=== PATIENT | male | born 1960 | race Caucasian/White ===

== ENCOUNTER 2018-04-07 22:35 | Inpatient (IN) | payer OTHER ==
[2018-04-07] MEDS ORDERED: SODIUM CHLORIDE 0.9% 1,000 ML IV ONE (22:56)
[2018-04-07] MEDS ORDERED: KETOROLAC 30 MG/ML 1 ML VIAL IVP STA (22:56)
[2018-04-07 23:09] LABS: Basophils % (A) 0 %; Eosinophils # (A) 0.2 k/uL (0-0.7); Eosinophils % (A) 1 %; HCT 42.7 % (39.0-53.0); HGB 14.5 gm/dL (13.0-17.5); Lymphocytes # (A) 1.4 k/uL (1.0-4.8); Lymphocytes % (A) 9 %; MCH 27.4 pg (25.0-35.0); MCHC 33.9 g/dL (31.0-37.0); MCV 80.7 fL (80.0-100.0); Mean Platelet Volume 6.3; Monocytes # (A) 0.6 k/uL (0-1.0); Monocytes % (A) 4 %; Neutrophils # (A) 12.5 k/uL (1.3-7.7); Neutrophils % (A) 84 %; Platelet Count 254 k/uL (150-450); RBC 5.29 m/uL (4.30-5.90); RDW 14.2 % (11.5-15.5); WBC 14.8 k/uL (3.8-10.6)
[2018-04-07 23:17] LABS: ALT 42 U/L (21-72); AST 30 U/L (17-59); Albumin 4.4 g/dL (3.5-5.0); Alkaline Phosphatase 52 U/L (38-126); Anion Gap 15 mmol/L; Blood Urea Nitrogen 22 mg/dL (9-20); Calcium 9.7 mg/dL (8.4-10.2); Carbon Dioxide 25 mmol/L (22-30); Chloride 99 mmol/L (98-107); Glucose 128 mg/dL (74-99); Potassium 3.7 mmol/L (3.5-5.1); Sodium 139 mmol/L (137-145); Total Bilirubin 0.6 mg/dL (0.2-1.3); Total Protein 7.2 g/dL (6.3-8.2)
[2018-04-07 23:46] LABS: Appearance,Urine Clear (Clear); Bilirubin,Urine Negative (Negative); Blood,Urine Negative (Negative); Color,Urine Yellow; Glucose,Urine (UA) Negative (Negative); Ketones,Urine Negative (Negative); Leukocyte Esterase,Urine Trace (Negative); Mucus,Urine Few /hpf; Nitrite,Urine Negative (Negative); PH, Urine 5.5 (5.0-8.0); Protein,Urine Trace (Negative); RBC,Urine 1 /hpf (0-5); Urobilinogen,Urine <2.0 mg/dL (<2.0); WBC,Urine 1 /hpf (0-5)
[2018-04-08] MEDS ORDERED: ACETAMINOPHEN TAB 325 MG TAB PO PRN (00:10)
[2018-04-08] MEDS ORDERED: NALOXONE 0.4 MG/ML 1 ML VIAL IV PRN (00:10)
[2018-04-08] MEDS ORDERED: IBUPROFEN 400 MG TAB PO PRN (00:10)
--- NOTE | 2018-04-08 00:10 | ED ---
General Adult HPI - General Chief complaint: Recheck/Abnormal Lab/Rx Stated complaint: Abnormal Labs, leg infection, sent by Ph[facility] Time Seen by Provider: 04/07/18 22:47 Source: patient, family Mode of arrival: ambulatory Limitations: no limitations - History of Present Illness Initial comments: 58-year-old male patient presents to the emergency department today for evaluation of cellulitis to the right lower leg. Patient does have a history of recurrent cellulitis to this extremity. States that he has had fever as high as 100.7 and did have elevated white blood cell count 17.8 at the clinic earlier today. He was sent here for IV antibiotics and admission. Patient states that the redness to the right lower leg started this morning and has worsened throughout the day. He denies any nausea or vomiting. States he has been dizzy. States that he does have pain to the leg. Denies any known injury. States he has had vascular issues which causes swelling to the leg for which he wears a compression stocking. Patient denies any recent shortness breath, cough, nasal congestion, sore throat, chest pain, abdominal pain, nausea , vomiting, diarrhea, constipation, back pain, numbness, tingling, weakness, headache, visual changes, or any other complaints. - Related Data Home Medications Medication Instructions Recorded Confirmed Aspirin EC [Ecotrin Low Dose] 81 mg PO DAILY 04/07/18 04/07/18 Atorvastatin [Lipitor] 40 mg PO DAILY 04/07/18 04/07/18 Fenofibrate [Lofibra] 54 mg PO DAILY 04/07/18 04/07/18 Fluticasone Nasal [place] [Flonase 1 spray EA NOSTRIL DAILY 04/07/18 04/07/18 Nasal [place]] Levothyroxine Sodium [Synthroid] 50 mcg PO DAILY 04/07/18 04/07/18 Lisinopril-Hctz 20-12.5 mg 1 tab PO DAILY 04/07/18 04/07/18 [Zestoretic 20-12.5] Multivitamins, Thera [Multivitamin 1 tab PO DAILY 04/07/18 04/07/18 (formulary)] Naproxen [Naprosyn] 500 mg PO BID PRN 04/07/18 04/07/18 Allergies Allergy/AdvReac Type Severity Reaction Status Date / Time No Known Allergies Allergy Verified 04/07/18 22:52 Review of Systems ROS Statement: Those systems with pertinent positive or pertinent negative responses have been documented in the HPI. ROS Other: All systems not noted in ROS Statement are negative. Past Medical History Past Medical History: Hyperlipidemia, Hypertension, Thyroid Disorder Additional Past Medical History / Comment(s): cellulitis right leg History of Any Multi-Drug Resistant Organisms: None Reported Past Surgical History: No Surgical Hx Reported Past Psychological History: No Psychological Hx Reported Smoking Status: Never smoker Past Alcohol Use History: Occasional Past Drug Use History: None Reported General Exam Limitations: no limitations General appearance: alert, in no apparent distress, other (This is a well- developed, well-nourished adult male patient in no acute distress. Vital signs upon presentation are temperature 99.3F, pulse 83, respirations 20, blood pressure 142/66, pulse ox 98% on room air.) Eye exam: Present: normal appearance, PERRL, EOMI. Absent: scleral icterus, conjunctival injection, periorbital swelling ENT exam: Present: normal exam, normal oropharynx, mucous membranes moist Neck exam: Present: normal inspection. Absent: tenderness, meningismus, lymphadenopathy Respiratory exam: Present: normal lung sounds bilaterally. Absent: respiratory distress, wheezes, rales, rhonchi, stridor Cardiovascular Exam: Present: regular rate, normal rhythm, normal heart sounds. Absent: systolic murmur, diastolic murmur, rubs, gallop, clicks GI/Abdominal exam: Present: soft, normal bowel sounds. Absent: distended, tenderness, guarding, rebound, rigid Extremities exam: Present: full ROM, tenderness (Right anterior lower leg generalized tenderness), normal capillary refill, other (There is erythema and warmth to the right anterior lower leg. There is wound between the second and third toes on the right foot. Erythema does not extend down to this wound but does extend from the ankle to just below the knee. This is not circumferential. ). Absent: normal inspection, pedal edema, joint swelling, calf tenderness Neurological exam: Present: alert, oriented X3, CN II-XII intact Psychiatric exam: Present: normal affect, normal mood Skin exam: Present: warm, dry, intact, normal color. Absent: rash Course Vital Signs 04/07/18 22:36 Temperature 99.3 F Pulse Rate 83 Respiratory 20 Rate Blood Pressure 142/66 O2 Sat by Pulse 98 Oximetry Medical Decision Making - Medical Decision Making 58-year-old male patient presents to the emergency department today for evaluation of cellulitis of the right lower leg. Physical examination does reveal erythema and warmth to the right anterior lower leg. Patient does have wound between the second and third toes. Labs reviewed and showed a white blood cell count of 14.8. Patient does have recurrent cellulitic infections, states he usually feels outpatient treatment. We will start him on vancomycin and admitted to the hospital. Patient will be admitted to Dr. Levin. Patient verbalizes understanding and agrees with this plan. - Lab Data Result diagrams: 04/07/18 22:50 04/07/18 22:50 Lab Results 04/07/18 04/07/18 04/07/18 Range/Units 22:50 22:50 22:50 WBC 14.8 H (3.8-10.6) k/uL RBC 5.29 (4.30-5.90) m/uL Hgb 14.5 (13.0-17.5) gm/dL Hct 42.7 (39.0-53.0) % MCV 80.7 (80.0-100.0) fL MCH 27.4 (25.0-35.0) pg MCHC 33.9 (31.0-37.0) g/dL RDW 14.2 (11.5-15.5) % Plt Count 254 (150-450) k/uL Neutrophils % 84 % Lymphocytes % 9 % Monocytes % 4 % Eosinophils % 1 % Basophils % 0 % Neutrophils # 12.5 H (1.3-7.7) k/uL Lymphocytes # 1.4 (1.0-4.8) k/uL Monocytes # 0.6 (0-1.0) k/uL Eosinophils # 0.2 (0-0.7) k/uL Basophils # 0.0 (0-0.2) k/uL Sodium 139 (137-145) mmol/L Potassium 3.7 (3.5-5.1) mmol/L Chloride 99 (98-107) mmol/L Carbon Dioxide 25 (22-30) mmol/L Anion Gap 15 mmol/L BUN 22 H (9-20) mg/dL Creatinine 1.00 (0.66-1.25) mg/dL Est GFR (CKD-EPI)AfAm >90 (>60 ml/min/1.73 sqM) Est GFR (CKD-EPI)NonAf 83 (>60 ml/min/1.73 sqM) Glucose 128 H (74-99) mg/dL Plasma Lactic Acid [place] 1.5 (0.7-2.0) mmol/L Calcium 9.7 (8.4-10.2) mg/dL Total Bilirubin 0.6 (0.2-1.3) mg/dL AST 30 (17-59) U/L ALT 42 (21-72) U/L Alkaline Phosphatase 52 (38-126) U/L Total Protein 7.2 (6.3-8.2) g/dL Albumin 4.4 (3.5-5.0) g/dL Urine Color Urine Appearance (Clear) Urine pH (5.0-8.0) Ur Specific [place] (1.001-1.035) Urine Protein (Negative) Urine Glucose (UA) (Negative) Urine Ketones (Negative) Urine Blood (Negative) Urine Nitrite (Negative) Urine Bilirubin (Negative) Urine Urobilinogen (<2.0) mg/dL Ur Leukocyte Esterase (Negative) Urine RBC (0-5) /hpf Urine WBC (0-5) /hpf Urine Mucus (None) /hpf 04/07/18 Range/Units 23:15 WBC (3.8-10.6) k/uL RBC (4.30-5.90) m/uL Hgb (13.0-17.5) gm/dL Hct (39.0-53.0) % MCV (80.0-100.0) fL MCH (25.0-35.0) pg MCHC (31.0-37.0) g/dL RDW (11.5-15.5) % Plt Count (150-450) k/uL Neutrophils % % Lymphocytes % % Monocytes % % Eosinophils % % Basophils % % Neutrophils # (1.3-7.7) k/uL Lymphocytes # (1.0-4.8) k/uL Monocytes # (0-1.0) k/uL Eosinophils # (0-0.7) k/uL Basophils # (0-0.2) k/uL Sodium (137-145) mmol/L Potassium (3.5-5.1) mmol/L Chloride (98-107) mmol/L Carbon Dioxide (22-30) mmol/L Anion Gap mmol/L BUN (9-20) mg/dL Creatinine (0.66-1.25) mg/dL Est GFR (CKD-EPI)AfAm (>60 ml/min/1.73 sqM) Est GFR (CKD-EPI)NonAf (>60 ml/min/1.73 sqM) Glucose (74-99) mg/dL Plasma Lactic Acid [place] (0.7-2.0) mmol/L Calcium (8.4-10.2) mg/dL Total Bilirubin (0.2-1.3) mg/dL AST (17-59) U/L ALT (21-72) U/L Alkaline Phosphatase (38-126) U/L Total Protein (6.3-8.2) g/dL Albumin (3.5-5.0) g/dL Urine Color Yellow Urine Appearance Clear (Clear) Urine pH 5.5 (5.0-8.0) Ur Specific [place] 1.030 (1.001-1.035) Urine Protein Trace H (Negative) Urine Glucose (UA) Negative (Negative) Urine Ketones Negative (Negative) Urine Blood Negative (Negative) Urine Nitrite Negative (Negative) Urine Bilirubin Negative (Negative) Urine Urobilinogen <2.0 (<2.0) mg/dL Ur Leukocyte Esterase Trace H (Negative) Urine RBC 1 (0-5) /hpf Urine WBC 1 (0-5) /hpf Urine Mucus Few H (None) /hpf Disposition Clinical Impression: Cellulitis of right lower extremity Disposition: ADMITTED IP TO THIS [facility] Condition: Serious Referrals: Donavan Ashley DO [Primary Care Provider] - 1-2 days Decision to Admit Reason: Admit from EC Decision Date: 04/08/18 Decision Time: 00:10
[2018-04-08] MEDS ORDERED: VANCOMYCIN IV PER PHARMACY 1 EACH MISC MISCELLANE PRN (00:12)
[2018-04-08] MEDS: SODIUM CHLORIDE 0.9% 1,000 ML IV SCH ×2 (01:03→12:38)
[2018-04-08] MEDS: VANCOMYCIN 1,750 MG in SODIUM CHLORIDE 0.9% 250 ML IVPB SCH ×2 (01:13→14:51)
[2018-04-08] MEDS: LEVOTHYROXINE 50 MCG TAB PO SCH (05:12)
[2018-04-08] MEDS: ASPIRIN 81 MG PO SCH (08:15)
[2018-04-08] MEDS: FENOFIBRATE 54 MG TAB PO SCH (08:15)
[2018-04-08] MEDS: FLUTICASONE 50MCG/SPRAY NASAL 16GM EA NOSTRIL SCH (08:15)
[2018-04-08] MEDS: ATORVASTATIN 40 MG TAB PO SCH (08:15)
[2018-04-08] MEDS: LISINOPRIL-HCTZ 20-12.5 MG 1 EACH TAB PO SCH (08:15)
[2018-04-08] MEDS: MULTIVITAMINS, THERA 1 EACH TAB PO SCH (12:37)
--- NOTE | 2018-04-08 13:47 | P.HPIM ---
History of Present Illness This is a pleasant 58 years old male with past medical history of hyperlipidemia , hypertension, thyroid disorder, who complains from recurrent redness and infection of his right lower extremity. Now presents with right leg redness and swelling and tenderness of 2 days' duration, Last time infection was about 2 months ago on 11/2017 Patient had fever last night of 100.7 and in the emergency room found to have elevated white cell count and patient was started on antibiotic vancomycin Review of Systems REVIEW OF SYSTEMS: CONSTITUTIONAL: No fever, no malaise, no fatigue. HEENT: No recent visual problems or hearing problems. Denied any sore throat. CARDIOVASCULAR: No orthopnea, PND, no palpitations, no syncope. PULMONARY: No shortness of breath, no cough, no hemoptysis. GASTROINTESTINAL: No diarrhea, no nausea, no vomiting, no abdominal pain. Normoactive bowel sounds. NEUROLOGICAL: No headaches, no weakness, no numbness. HEMATOLOGICAL: Denies any bleeding or petechiae. GENITOURINARY: Denies any burning micturition, frequency, or urgency. MUSCULOSKELETAL/RHEUMATOLOGICAL: Denies any joint pain, swelling, or any muscle pain. ENDOCRINE: Denies any polyuria or polydipsia. Past Medical History Past Medical History: Hyperlipidemia, Hypertension, Thyroid Disorder Additional Past Medical History / Comment(s): cellulitis right leg History of Any Multi-Drug Resistant Organisms: None Reported Past Surgical History: No Surgical Hx Reported Past Psychological History: No Psychological Hx Reported Smoking Status: Never smoker Past Alcohol Use History: Occasional Past Drug Use History: None Reported Medications and Allergies Home Medications Medication Instructions Recorded Confirmed Type Aspirin EC [Ecotrin Low Dose] 81 mg PO DAILY 04/07/18 04/07/18 History Atorvastatin [Lipitor] 40 mg PO DAILY 04/07/18 04/07/18 History Fenofibrate [Lofibra] 54 mg PO DAILY 04/07/18 04/07/18 History Fluticasone Nasal [place] [Flonase 1 spray EA NOSTRIL DAILY 04/07/18 04/07/18 History Nasal [place]] Levothyroxine Sodium [Synthroid] 50 mcg PO DAILY 04/07/18 04/07/18 History Lisinopril-Hctz 20-12.5 mg 1 tab PO DAILY 04/07/18 04/07/18 History [Zestoretic 20-12.5] Multivitamins, Thera [Multivitamin 1 tab PO DAILY 04/07/18 04/07/18 History (formulary)] Naproxen [Naprosyn] 500 mg PO BID PRN 04/07/18 04/07/18 History Allergies Allergy/AdvReac Type Severity Reaction Status Date / Time No Known Allergies Allergy Verified 04/07/18 22:52 Physical Exam Vitals: Vital Signs Temp Pulse Pulse Resp BP BP Pulse Ox 04/08/18 05:50 97.0 F L 63 16 104/62 98 04/08/18 01:10 97.7 F 67 16 112/81 98 04/08/18 00:57 98.6 F 63 18 106/52 97 04/07/18 22:36 99.3 F 83 20 142/66 98 Intake and Output 04/07/18 04/08/18 04/08/18 22:59 06:59 14:59 Other: Voiding Method Toilet # Voids 1 Weight 117.934 kg GENERAL: The patient is alert and oriented x3, not in any acute distress. Well developed, well nourished. HEENT: Pupils are round and equally reacting to light. EOMI. No scleral icterus. No conjunctival pallor. Normocephalic, atraumatic. No pharyngeal erythema. No thyromegaly. CARDIOVASCULAR: S1 and S2 present. No murmurs, rubs, or gallops. PULMONARY: Chest is clear to auscultation, no wheezing or crackles. ABDOMEN: Soft, nontender, nondistended, normoactive bowel sounds. No palpable organomegaly. MUSCULOSKELETAL: No joint swelling or deformity. EXTREMITIES: No cyanosis, clubbing, or pedal edema. -Right leg is red and tender anteriorly, right foods toes with scaling and ulcers NEUROLOGICAL: Gross neurological examination did not reveal any focal deficits. SKIN: No rashes. Results CBC & Chem 7: 04/07/18 22:50 04/07/18 22:50 Labs: Abnormal Lab Results - Last 24 Hours (Table) 04/07/18 04/07/18 04/07/18 Range/Units 22:50 22:50 23:15 WBC 14.8 H (3.8-10.6) k/uL Neutrophils # 12.5 H (1.3-7.7) k/uL BUN 22 H (9-20) mg/dL Glucose 128 H (74-99) mg/dL Urine Protein Trace H (Negative) Ur Leukocyte Esterase Trace H (Negative) Urine Mucus Few H (None) /hpf Microbiology - Last 24 Hours (Table) 04/07/18 23:15 Urine Culture - Preliminary Urine,Voided Thrombosis Risk Factor Assmnt - Choose All That Apply Any of the Below Risk Factors Present?: Yes Each Factor Represents 1 point: Age 41-60 years, Obesity (BMI >25) Other Risk Factors: No Other congenital or acquired thrombophilia - If yes, enter type in comment: No Thrombosis Risk Factor Assessment Total Risk Factor Score: 2 Thrombosis Risk Factor Assessment Level: Low Risk Assessment and Plan Plan: -Left leg cellulitis, continue with IV antibiotics, he is on vancomycin, check venous Doppler to rule out DVT. Call ID consult -Right foods fungal infection start him on clotrimazole -Hypertension continue with lisinopril-HCTZ 12.5 DVT prophylaxis on subcutaneous heparin GI prophylaxis on Pepcid
--- NOTE | 2018-04-08 15:06 | US ---
EXAMINATION TYPE: US venous doppler duplex LE DATE OF EXAM: 04/08/2018 2:45 PM COMPARISON: NONE CLINICAL HISTORY: leg cellulitis. cellulitis for 1 year, swelling in legs SIDE PERFORMED: Bilateral TECHNIQUE: The lower extremity deep venous system is examined utilizing real time linear array sonog licha with graded compression, doppler sonography and color-flow sonography. VESSELS IMAGED: External Iliac Vein (EIV) Common Femoral Vein Deep Femoral Vein Greater Saphenous Vein * Femoral Vein Popliteal Vein Small Saphenous Vein * Proximal Calf Veins (* superficial vessels) Right Leg: Appears negative for DVT Left Leg: Appears negative for DVT, there is color flow, vascular waveforms noted in the bilateral d eep veins of the lower extremities as described, normal compressibility. IMPRESSION: No evident deep vein thrombosis at or above the knees. Follow-up as indicated.
[2018-04-08] MEDS: ceFAZolin IN SWFI 2 GM/20 ML SYRINGE IVP SCH ×2 (17:25→23:23)
[2018-04-08] MEDS: CLOTRIMAZOLE 1% CREAM 15 GM TUBE TOPICAL SCH (20:41)
[2018-04-08] MEDS: HEPARIN SODIUM,PORCINE 5,000 UNIT/ML 1 ML VIAL SQ SCH (20:41)
[2018-04-08] MEDS: FAMOTIDINE 20 MG/2 ML VIAL IV SCH (20:41)
--- NOTE | 2018-04-08 22:35 | CONS ---
CONSULTATION DATE OF SERVICE: 04/08/2018. REASON FOR CONSULTATION: Right lower extremity cellulitis. HISTORY OF PRESENT ILLNESS: The patient is a 58 -year-old male presenting to the ER with chief complaints of right leg swelling and redness and fever. The patient did have a history of recurrent cellulitis to right lower extremity. This being his 3rd episode. The last time he was admitted at [facility] in August of 2017. The patient did mention that he did have vascular workup done at [facility] and has been advised compression to keep the swelling in his legs down as the blood flowing back to the heart seems to be compromised. The patient did mention they are having a fever with chills and subsequently noticed the right leg becoming swollen and red. The patient does have some dull aching pain to the leg about 2/10. No radiation or skin breakdown. No drainage and no history of any trauma. With these symptoms, the patient has been evaluated. The patient did have lower extremity Doppler that has been negative for DVT. The patient did have a low-grade fever and elevated white count. Patient has been started on vancomycin. However the patient seems to have a concern about from [place]. Hence, Infectious Disease was consulted for further recommendation regarding antibiotic therapy. REVIEW OF SYSTEMS: CONSTITUTIONAL: Positive for weakness and low-grade fever. Eyes no complaint. ENT no complaint. Respiratory no complaint. Cardiovascular no complaint. Genitourinary no complaint. Gastrointestinal: No complaint. Musculoskeletal: No complaint. Integumentary: As per HPI. PSYCHOLOGICAL: No complaint. Endocrine: No complaint. Neurologic no complaint. PAST MEDICAL HISTORY: Hypertension, hyperlipidemia, hypothyroidism, recurrent cellulitis of the right lower extremity. PAST SURGICAL HISTORY: Socially drinks. No smoking. No drug use. FAMILY HISTORY: No pertinent findings noticed. ALLERGIES: No known drug allergies. MEDICATIONS: Include the patient is currently on Tylenol, aspirin, Lipitor, vancomycin pharmacy to dose. Clotrimazole cream, Pepcid, fenofibrate, Flonase nasal spray and Zestoretic, heparin, Synthroid, Narcan. EXAMINATION: Blood pressure is 111/59, pulse of 71 temperature 98.7. He is 95% on room air. General description is a middle-aged male lying in bed in no distress. No tachypnea or accessory muscle of respiration use. HEENT: Shows no pallor or scleral icterus. Oral mucosa membranes moist. No pharyngeal erythema or thrush. Neck trachea central. No thyromegaly. Lungs unlabored breathing. Clear to auscultation anteriorly. No wheeze or crackles. Heart S1, S2. Regular rate and rhythm. ABDOMEN: Soft, no tenderness. No guarding or rigidity. Right lower extremity with diffuse swelling, minimal redness, slightly warm to touch. No evidence of athlete's foot. Neurological: The patient is awake, alert, oriented x3. Mood and affect normal. LABS: White hemoglobin 14.5, white count 14.8 with a BUN of 22, creatinine 1.0. Electrolytes have been normal. Liver enzymes are normal. Urine has been negative. The blood culture obtained currently pending. DIAGNOSTIC IMPRESSION AND PLAN: Patient with acute right lower extremity cellulitis in a patient who did have diffuse swelling with a history of swelling in the leg more likely representing a streptococcal cellulitis. PLAN: 1. Discontinue the vancomycin. 2. Cefazolin 2 g q.8 hours. 3. Yosef wrap to the leg to keep the swelling down. 4. Depending upon the clinical response, will adjust the medication further if needed. Thank you for this consultation. Will follow this patient along with you. MMODL / IJN: [id number] /
[2018-04-08 22:39] VITALS: RESP 16
[2018-04-09] MEDS: SODIUM CHLORIDE 0.9% 1,000 ML IV SCH (06:07)
[2018-04-09] MEDS: LEVOTHYROXINE 50 MCG TAB PO SCH (06:33)
[2018-04-09 06:35] VITALS: BP 111/66; PULSE 60; TEMP 97
[2018-04-09 07:42] LABS: Basophils % (A) 0 %; Eosinophils # (A) 0.3 k/uL (0-0.7); Eosinophils % (A) 4 %; HCT 41.6 % (39.0-53.0); HGB 13.9 gm/dL (13.0-17.5); Lymphocytes # (A) 1.4 k/uL (1.0-4.8); Lymphocytes % (A) 19 %; MCH 27.5 pg (25.0-35.0); MCHC 33.5 g/dL (31.0-37.0); Mean Platelet Volume 6.8; Monocytes # (A) 0.7 k/uL (0-1.0); Monocytes % (A) 10 %; Neutrophils # (A) 4.6 k/uL (1.3-7.7); Neutrophils % (A) 64 %; Platelet Count 248 k/uL (150-450); RBC 5.07 m/uL (4.30-5.90); WBC 7.2 k/uL (3.8-10.6)
[2018-04-09 07:50] LABS: Anion Gap 11 mmol/L; Blood Urea Nitrogen 19 mg/dL (9-20); Calcium 9.1 mg/dL (8.4-10.2); Carbon Dioxide 26 mmol/L (22-30); Chloride 104 mmol/L (98-107); Glucose 108 mg/dL (74-99); Potassium 4.6 mmol/L (3.5-5.1); Sodium 141 mmol/L (137-145)
[2018-04-09] MEDS: ASPIRIN 81 MG PO SCH (08:55)
[2018-04-09] MEDS: ceFAZolin IN SWFI 2 GM/20 ML SYRINGE IVP SCH (08:55)
[2018-04-09] MEDS: HEPARIN SODIUM,PORCINE 5,000 UNIT/ML 1 ML VIAL SQ SCH (08:56)
[2018-04-09] MEDS: CLOTRIMAZOLE 1% CREAM 15 GM TUBE TOPICAL SCH (08:56)
[2018-04-09] MEDS: FLUTICASONE 50MCG/SPRAY NASAL 16GM EA NOSTRIL SCH (08:56)
[2018-04-09] MEDS: FENOFIBRATE 54 MG TAB PO SCH (08:56)
[2018-04-09] MEDS: ATORVASTATIN 40 MG TAB PO SCH (08:56)
[2018-04-09] MEDS: FAMOTIDINE 20 MG/2 ML VIAL IV SCH (08:56)
[2018-04-09] MEDS: LISINOPRIL-HCTZ 20-12.5 MG 1 EACH TAB PO SCH (08:57)
[2018-04-09] MEDS: MULTIVITAMINS, THERA 1 EACH TAB PO SCH (08:58)
--- NOTE | 2018-04-09 14:30 | PN ---
PROGRESS NOTE DATE OF SERVICE: 04/09/2018 REASON FOR FOLLOWUP: Right leg cellulitis. INTERVAL HISTORY: The patient is afebrile, currently breathing comfortably. Denies having any chest pain, shortness of breath or cough. No abdominal pain. The right leg pain, swelling and redness has improved. PHYSICAL EXAMINATION: On examination, blood pressure 111/66, pulse of 60, temperature 97. He is 97% on room air. General description is a middle-aged male, lying in bed, in no distress. RESPIRATORY SYSTEM: Unlabored breathing, clear to auscultation anteriorly. HEART: S1, S2. Regular rate and rhythm. ABDOMEN: Soft, no tenderness. Right leg swelling and redness slightly improved. No skin breakdown. No drainage. LABS: White count normalized to 7.2 with a BUN of 19, creatinine 0.93. DIAGNOSTIC IMPRESSION AND PLAN: Patient with acute right lower extremity cellulitis. The patient did have significant swelling in the leg. Overall improvement on cefazolin, plan to finish therapy with Keflex 500 mg p.o. q.6 hours for 10 days. Script was sent to pharmacy. Follow up in the office in 1 week. Continue supportive care. The patient advised compression to keep the swelling down. MMODL / IJN: [id number] /
--- NOTE | 2018-04-09 18:15 | P.DS ---
Providers Date of admission: 04/08/18 00:04 Attending physician: Julianna Levin Consults: 04/08/18 13:45 Consult Physician Routine Consulting Provider: Stanley Silveira Consult Reason/Comments: Cellulitis Do you want consulting provider notified?: Yes Consult Physician Routine Consulting Provider: Stanley Silveira Consult Reason/Comments: cellulitis/antibiotic therapy Do you want consulting provider notified?: Yes Primary care physician: Donavan Ashley [facility] Course: This is a pleasant 58 years old male with past medical history of hyperlipidemia , hypertension, thyroid disorder, who complains from recurrent redness and infection of his right lower extremity. presents with right leg redness and swelling and tenderness of 2 days' duration, patient was found to have cellulitis of the right lower extremity. With possible fungal infection of the right foot toes. Venous Doppler was negative for DVT. Patient was evaluated by ID consult and. He was started on cefazolin, patient showed interval improvement with his white cell count coming down to normal from 14.8 K to 7.2K , patient was afebrile. Patient was cleared by ID for discharge on Keflex for 10 days, patient informed and he agrees Management plan was discussed with the patient and he verbalized understanding and acceptance Patient was found stable and can be discharged home however he needs follow-up as an outpatient. Patient agrees with the follow-up appointment recommendation Physical examination Gen. AAOX3, not in distress CVS: S1-S2, RRR, no murmur Lungs: B/L CTA, no wheezing, not in respiratory distress Abdomen: soft, no distention, no tenderness, positive bowel sounds Extremities: no edema or induration, palpable peripheral pulses, right leg erythema and swelling are improving Time spent more than 35 minutes Patient Condition at Discharge: Serious Plan - Discharge Summary Discharge Rx Participant: No New Discharge Prescriptions: New Cephalexin [Keflex] 500 mg PO Q6HR #40 cap Acetaminophen Tab [Tylenol] 650 mg PO Q6HR PRN tab PRN Reason: Mild Pain Or Fever > 100.5 Clotrimazole Cream [Lotrimin Cream] 1 applic TOPICAL BID #1 applic Continue Multivitamins, Thera [Multivitamin (formulary)] 1 tab PO DAILY Fluticasone Nasal [place] [Flonase Nasal [place]] 1 spray EA NOSTRIL DAILY Atorvastatin [Lipitor] 40 mg PO DAILY Aspirin EC [Ecotrin Low Dose] 81 mg PO DAILY Naproxen [Naprosyn] 500 mg PO BID PRN PRN Reason: Pain Lisinopril-Hctz 20-12.5 mg [Zestoretic 20-12.5] 1 tab PO DAILY Levothyroxine Sodium [Synthroid] 50 mcg PO DAILY Fenofibrate [Lofibra] 54 mg PO DAILY Discharge Medication List Aspirin EC [Ecotrin Low Dose] 81 mg PO DAILY 04/07/18 [History] Atorvastatin [Lipitor] 40 mg PO DAILY 04/07/18 [History] Fenofibrate [Lofibra] 54 mg PO DAILY 04/07/18 [History] Fluticasone Nasal [place] [Flonase Nasal [place]] 1 spray EA NOSTRIL DAILY 04/07/18 [History] Levothyroxine Sodium [Synthroid] 50 mcg PO DAILY 04/07/18 [History] Lisinopril-Hctz 20-12.5 mg [Zestoretic 20-12.5] 1 tab PO DAILY 04/07/18 [History ] Multivitamins, Thera [Multivitamin (formulary)] 1 tab PO DAILY 04/07/18 [History ] Naproxen [Naprosyn] 500 mg PO BID PRN 04/07/18 [History] Acetaminophen Tab [Tylenol] 650 mg PO Q6HR PRN tab 04/09/18 [Rx] Cephalexin [Keflex] 500 mg PO Q6HR #40 cap 04/09/18 [Rx] Clotrimazole Cream [Lotrimin Cream] 1 applic TOPICAL BID #1 applic 04/09/18 [Rx] Follow up Appointment(s)/Referral(s): Donavan Ashley DO [Primary Care Provider] - 04/16/18 2:30 pm Stanley Silveira MD [STAFF PHYSICIAN] - As Needed Patient Instructions/Handouts: Cellulitis (DC) Activity/Diet/Wound Care/Special Instructions: Wear NICK stockings to help decrease swelling, cream as needed for right foot Activity as tolerated, elevate legs at rest. Low fat diet Discharge Disposition: HOME SELF-CARE
[2018-04-09] MEDS ORDERED: FAMOTIDINE 20 MG TAB PO SCH (21:00)
== END 2018-04-09 14:54 | disposition home or self-care (01) | DRG 603 ==
LOC: EC 22:35 → 4MS4W 04-08 00:04
PROVIDERS: ADMIT Hospitalist; ATTEND Hospitalist
DX: L03.115 Cellulitis of right lower limb (principal); E03.9 Hypothyroidism, unspecified; E78.5 Hyperlipidemia, unspecified; I10 Essential (primary) hypertension; B35.3 Tinea pedis; Z79.82 Long term (current) use of aspirin; Z79.890 Hormone replacement therapy; Z79.899 Other long term (current) drug therapy; B95.5 Unspecified streptococcus as the cause of diseases classified elsewhere
CPT/HCPCS: 36415; 80048; 80053; 81001; 83605; 85025; 87040; 87086; 93970; 96361; 96365; 96375; 99284

== ENCOUNTER 2020-04-06 19:57 | Emergency (ER) | payer OTHER ==
[2020-04-06 20:11] VITALS: BP 143/88; PULSE 66; RESP 20; TEMP 98
--- NOTE | 2020-04-06 20:38 | ED ---
Skin/Abscess/FB HPI - General Chief complaint: Skin/Abscess/Foreign Body Stated complaint: neck swelling, rash Time Seen by Provider: 04/06/20 20:12 Source: patient Mode of arrival: ambulatory Limitations: no limitations - History of Present Illness Initial comments: Patient is a 60-year-old male presenting to emergency Department with a chief complaint of a rash. Patient reports the rash initially started under bilateral breasts as well as his axilla bilaterally. Patient reports that about a week ago he has developed the same rash around his neck and upper chest region. States he saw his primary care who discharged him with steroids. States there was some initial improvement however the rash returned and is now moving close to the head. Patient reports she was evaluated by the urgent care today and was given a single dose of IM steroids and Benadryl. States he was advised to come to the ED for further evaluation and CT imaging. Patient states the rash is otherwise itchy and has a burning sensation. Denies any night sweats fevers or chills. He has history of cellulitis with hospital admissions but states this does not feel like it. - Related Data Home Medications Medication Instructions Recorded Confirmed Aspirin EC [Ecotrin Low Dose] 81 mg PO DAILY 04/07/18 04/07/18 Atorvastatin [Lipitor] 40 mg PO DAILY 04/07/18 04/07/18 Fenofibrate [Lofibra] 54 mg PO DAILY 04/07/18 04/07/18 Fluticasone Nasal [place] [Flonase 1 spray EA NOSTRIL DAILY 04/07/18 04/07/18 Nasal [place]] Levothyroxine Sodium [Synthroid] 50 mcg PO DAILY 04/07/18 04/07/18 Lisinopril-Hctz 20-12.5 mg 1 tab PO DAILY 04/07/18 04/07/18 [Zestoretic 20-12.5] Multivitamins, Thera [Multivitamin 1 tab PO DAILY 04/07/18 04/07/18 (formulary)] Naproxen [Naprosyn] 500 mg PO BID PRN 04/07/18 04/07/18 Previous Rx's Medication Instructions Recorded Acetaminophen Tab [Tylenol] 650 mg PO Q6HR PRN tab 04/09/18 Cephalexin [Keflex] 500 mg PO Q6HR #40 cap 04/09/18 Clotrimazole Cream [Lotrimin Cream] 1 applic TOPICAL BID #1 applic 04/09/18 Sulfamethox-Tmp 800-160Mg [Bactrim 1 each PO Q12HR #20 tab 04/06/20 Ds] Allergies Allergy/AdvReac Type Severity Reaction Status Date / Time No Known Allergies Allergy Verified 04/06/20 20:11 Review of Systems ROS Statement: Those systems with pertinent positive or pertinent negative responses have been documented in the HPI. ROS Other: All systems not noted in ROS Statement are negative. Past Medical History Past Medical History: Hyperlipidemia, Hypertension, Thyroid Disorder Additional Past Medical History / Comment(s): cellulitis right leg History of Any Multi-Drug Resistant Organisms: None Reported Past Surgical History: Hernia Repair Additional Past Surgical History / Comment(s): temperol artery surgery Past Psychological History: No Psychological Hx Reported Smoking Status: Never smoker Past Alcohol Use History: Occasional Past Drug Use History: None Reported General Exam Limitations: no limitations General appearance: alert, in no apparent distress, obese Head exam: Present: atraumatic, normocephalic, normal inspection Eye exam: Present: normal appearance, PERRL, EOMI Pupils: Present: normal accommodation ENT exam: Present: normal exam, normal oropharynx (No tenderness on the floor of mouth or in the submandibular region.), mucous membranes moist, TM's normal bilaterally, normal external ear exam, other (Small mass noted in the submandibular region.) Neck exam: Present: normal inspection, full ROM Respiratory exam: Present: normal lung sounds bilaterally Cardiovascular Exam: Present: regular rate, normal rhythm, normal heart sounds Extremities exam: Present: normal inspection, full ROM Back exam: Present: normal inspection, full ROM Neurological exam: Present: alert, oriented X3 Psychiatric exam: Present: normal affect, normal mood Skin exam: Present: warm, dry, intact, normal color, rash (Nonblanching erythematous rash on bilateral axilla, breasts and surrounding the neck.) Course Vital Signs 04/06/20 20:06 Temperature 98.0 F Pulse Rate 66 Respiratory 20 Rate Blood Pressure 143/88 O2 Sat by Pulse 97 Oximetry Medical Decision Making - Medical Decision Making Patient is a 60-year-old male presenting to emergency Department with a chief complaint of a rash. Patient does have history of cellulitis with Hospital admissions. CBC and CMP are unremarkable. CT of soft tissue neck reveals a lymph node in the region of suspected mass is minimally region. Fitch stranding also noted suggesting possible cellulitis. Patient will be started on Bactrim. States he has side effects from Keflex.. also examined the patient and is in agreement with the treatment plan. Patient advised to follow up with a substance abuse prevention coordinator. Return parameters were thoroughly discussed with patient was understanding and agreeable. - Lab Data Result diagrams: 04/06/20 21:00 04/06/20 21:00 Lab Results 04/06/20 04/06/20 Range/Units 21:00 21:00 WBC 9.8 (3.8-10.6) k/uL RBC 5.36 (4.30-5.90) m/uL Hgb 14.7 (13.0-17.5) gm/dL Hct 45.4 (39.0-53.0) % MCV 84.6 (80.0-100.0) fL MCH 27.4 (25.0-35.0) pg MCHC 32.3 (31.0-37.0) g/dL RDW 13.6 (11.5-15.5) % Plt Count 214 (150-450) k/uL Neutrophils % 84 % Lymphocytes % 12 % Monocytes % 2 % Eosinophils % 2 % Basophils % 0 % Neutrophils # 8.2 H (1.3-7.7) k/uL Lymphocytes # 1.1 (1.0-4.8) k/uL Monocytes # 0.2 (0-1.0) k/uL Eosinophils # 0.2 (0-0.7) k/uL Basophils # 0.0 (0-0.2) k/uL Sodium 140 (137-145) mmol/L Potassium 4.2 (3.5-5.1) mmol/L Chloride 106 (98-107) mmol/L Carbon Dioxide 24 (22-30) mmol/L Anion Gap 10 mmol/L BUN 18 (9-20) mg/dL Creatinine 0.82 (0.66-1.25) mg/dL Est GFR (CKD-EPI)AfAm >90 (>60 ml/min/1.73 sqM) Est GFR (CKD-EPI)NonAf >90 (>60 ml/min/1.73 sqM) Glucose 160 H (74-99) mg/dL Calcium 9.9 (8.4-10.2) mg/dL Total Bilirubin 0.5 (0.2-1.3) mg/dL AST 37 (17-59) U/L ALT 34 (4-49) U/L Alkaline Phosphatase 78 (38-126) U/L Total Protein 7.8 (6.3-8.2) g/dL Albumin 4.6 (3.5-5.0) g/dL Disposition Clinical Impression: Rash and nonspecific skin eruption Disposition: HOME SELF-CARE Condition: Stable Instructions (If sedation given, give patient instructions): Cellulitis (DC), Dermatitis (ED) Additional Instructions: Take prescribed medication as directed. Follow-up with a substance abuse prevention coordinator. Return to emergency department if symptoms worsen. Prescriptions: Sulfamethox-Tmp 800-160Mg [Bactrim Ds] 1 each PO Q12HR #20 tab Is patient prescribed a controlled substance at d/c from ED?: No Referrals: Donavan Ashley DO [Primary Care Provider] - 1-2 days Nikolai Law MD [STAFF PHYSICIAN] - 1-2 days Liz Law MD [STAFF PHYSICIAN] - 1-2 days Time of Disposition: 22:14
[2020-04-06 21:18] LABS: Basophils % (A) 0 %; Eosinophils # (A) 0.2 k/uL (0-0.7); Eosinophils % (A) 2 %; HCT 45.4 % (39.0-53.0); HGB 14.7 gm/dL (13.0-17.5); Lymphocytes # (A) 1.1 k/uL (1.0-4.8); Lymphocytes % (A) 12 %; MCH 27.4 pg (25.0-35.0); MCHC 32.3 g/dL (31.0-37.0); MCV 84.6 fL (80.0-100.0); Mean Platelet Volume 6.8; Monocytes # (A) 0.2 k/uL (0-1.0); Monocytes % (A) 2 %; Neutrophils # (A) 8.2 k/uL (1.3-7.7); Neutrophils % (A) 84 %; Platelet Count 214 k/uL (150-450); RBC 5.36 m/uL (4.30-5.90); RDW 13.6 % (11.5-15.5); WBC 9.8 k/uL (3.8-10.6)
[2020-04-06 21:35] LABS: ALT 34 U/L (4-49); AST 37 U/L (17-59); African American GFR (CKD) >90 (>60 ml/min/1.73 sqM); Albumin 4.6 g/dL (3.5-5.0); Alkaline Phosphatase 78 U/L (38-126); Anion Gap 10 mmol/L; Blood Urea Nitrogen 18 mg/dL (9-20); Calcium 9.9 mg/dL (8.4-10.2); Carbon Dioxide 24 mmol/L (22-30); Chloride 106 mmol/L (98-107); Glucose 160 mg/dL (74-99); Non-African American GFR(CKD) >90 (>60 ml/min/1.73 sqM); Potassium 4.2 mmol/L (3.5-5.1); Sodium 140 mmol/L (137-145); Total Bilirubin 0.5 mg/dL (0.2-1.3); Total Protein 7.8 g/dL (6.3-8.2)
--- NOTE | 2020-04-06 21:37 | CT ---
EXAMINATION TYPE: CT soft tissue neck w con DATE OF EXAM: 04/06/2020 HISTORY: neck swelling, rash, submandibular fullness COMPARISON: NONE CT DLP: 400.1 mGycm. Automated Exposure Control for Dose Reduction was Utilized. TECHNIQUE: CT scan of the neck is performed with IV Contrast, patient injected with 77cc mL of Isovu e 300, axial images are obtained, coronal and sagittal reformatted images are reviewed. FINDINGS: Airway: No gross abnormality seen. Parotid/submandibular glands: Submandibular and parotid glands are symmetric. Intraparotid lymph node s are seen bilaterally. There is mild fatty replacement of the parotid glands. 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 Osseous Structures: Moderate multilevel degenerative change of the cervical spine. Reversal of the us ual cervical lordosis may relate to muscular strain/spasm or patient positioning. Other: There is some fat stranding in the midline subcutaneous tissues in the region of the sternal n otch. Multiple nonenlarged submental lymph nodes are seen that are left para midline. IMPRESSION: 1. Mild fat stranding in the midline subcutaneous tissues overlying the sternal notch. Correlate for cellulitis. No focal fluid collection to suggest abscess. 2. Nonenlarged left para midline submental lymph nodes could correspond to the patient's palpable abn ormality. No suspicious adenopathy in the neck.
== END 2020-04-06 22:30 | disposition home or self-care (01) ==
LOC: EC 19:57
DX: R21 Rash and other nonspecific skin eruption (principal); R22.1 Localized swelling, mass and lump, neck; I10 Essential (primary) hypertension; E78.5 Hyperlipidemia, unspecified; E07.9 Disorder of thyroid, unspecified; Z79.82 Long term (current) use of aspirin; Z79.899 Other long term (current) drug therapy; Z79.51 Long term (current) use of inhaled steroids; Z79.890 Hormone replacement therapy
CPT/HCPCS: 36415; 80053; 85025; 70491; 99283; Q9967